=== PATIENT | female | born 1995 | race Caucasian/White ===

== ENCOUNTER 2017-11-25 04:35 | Emergency (ER) | payer OTHER ==
[~2017-11-25] VITALS: Ht 157.5 cm; Wt 49.4 kg
[2017-11-25 04:38] VITALS: Ht 157.5 cm; Wt 49.4 kg
[2017-11-25] MEDS ORDERED: SODIUM CHLORIDE 0.9% 1000ML 1,000 ML IV STA ×2 (04:51→05:48)
[2017-11-25] MEDS ORDERED: ONDANSETRON INJ 2 MG/ML 2 ML VIAL IV STA ×2 (04:51→06:32)
[2017-11-25 05:06] LABS: BASO % 0.1 %; BASO ABS # 0.01 K/uL (0-0.2); EOS % 0.3 %; EOS ABS # 0.06 K/uL (0-0.5); HEMATOCRIT 44.6 % (37-47); HEMOGLOBIN 14.6 g/dL (12.0-16.0); IG# 0.05 K/uL (0.00-0.02); LYMPH % 4.2 %; LYMPH ABS # 0.75 K/uL (1.2-3.4); MEAN CELL VOLUME 89.6 fL (80-100); MEAN CORPUSCULAR HEMOGLOBIN 29.3 pg (25-34); MEAN CORPUSCULAR HGB CONC 32.7 g/dl (32-36); MEAN PLATELET VOLUME 10.5 fL (7.4-10.4); MONO % 4.6 %; MONO ABS # 0.82 K/uL (0.11-0.59); NEUT % 90.5 %; NEUT ABS # 16.05 K/uL (1.4-6.5); PLATELET COUNT 239 K/uL (130-400); RED CELL DISTRIBUTION WIDTH CV 14.5 % (11.5-14.5); RED CELL DISTRIBUTION WIDTH SD 47.3 fL (36.4-46.3); WHITE BLOOD COUNT 17.74 K/uL (4.8-10.8)
--- NOTE | 2017-11-25 05:08 | EMERGENCY ROOM VISIT NOTE ---
History First contact with patient: 04:43 Chief Complaint: VOMITING Stated Complaint: THROWING UP,NOT BEING ABLE TO KEEP FLUIDS DOWN Nursing Triage Summary: c/o n/v since 0 no abd pain no diarrhea. History of Present Illness The patient is a 22 year old female who presents to the Emergency Room with complaints of vomiting for the past 5 hours. The patient states that she woke up from sleeping approximately 5 hours ago and was nauseous. She developed vomiting and has had multiple episodes of vomiting since then. She has been unable to keep anything down. She tried to drink a small sip of water and vomited immediately. She does have Zofran at home but states that as soon as she put it in her mouth that she vomited. She reports some abdominal discomfort which she describes as crampy pain and rates the discomfort a 2/10. She denies diarrhea. She reports that she ate a dinner of [employer] comes prior to going to bed last night. She denies any history of abdominal surgeries or abdominal issues. Review of Systems A complete 10 point review of systems was reviewed with the patient with pertinent positives and negatives as per history of present illness. All else were negative. Past Medical/Surgical History Medical Problems: (1) No significant active problems Surgical Problems: (1) No significant past surgical history Social History Smoking Status: Never Smoker Alcohol Use: occasionally Occupation Status: employed Current/Historical Medications Scheduled Control Pills ( Control Pills), 1 TAB PO DAILY Paroxetine Hcl (Paxil), 10 MG PO HS Scheduled PRN Clonazepam (Klonopin), 0.5 MG PO TID PRN for Anxiety Physical Exam Vital Signs Date Time Temp Pulse Resp B/P (MAP) Pulse Ox O2 Delivery O2 Flow Rate FiO2 11/25/17 05:55 92 18 114/72 96 Room Air 11/25/17 04:38 37.0 111 18 128/88 98 Room Air Physical Exam VITALS: Vitals are noted on the nurse's note and reviewed by myself. Vital signs stable. GENERAL: This is a 22-year-old female, in no acute distress, nondiaphoretic, well-developed well-nourished. SKIN: The skin was without rashes. EARS: External auditory canals clear, tympanic membranes pearly rogers without erythema or effusion bilaterally. EYES: Pupils equal round and reactive to light and accommodation. MOUTH: Mucous membranes moist. Tonsils are not enlarged. Pharynx without erythema or exudate. NECK: Supple without nuchal rigidity. No lymphadenopathy. HEART: Regular rate and rhythm without murmurs gallops or rubs. LUNGS: Clear to auscultation bilaterally without wheezes, rales or rhonchi. ABDOMEN: Positive bowel sounds x 4. Soft, mild generalized tenderness to palpation with no focal tenderness. No guarding or rebound tenderness. NEURO: Patient was alert and oriented to person place and time. Medical Decision & Procedures ER Provider Diagnostic Interpretation: ABDOMEN 2VIEW W/PA CHEST RTN CLINICAL HISTORY: 22 years-old Female presenting with abdominal pain, vomiting. TECHNIQUE: PA view of the chest and supine and upright views of the abdomen were obtained. COMPARISON: None. FINDINGS: Cardiomediastinal silhouette normal. Lungs and pleural spaces clear. Nonobstructive bowel gas pattern. No gross pneumoperitoneum. Allowing for bowel gas and stool, no calcifications to suggest nephrolithiasis. Osseous structures normal. IMPRESSION: 1. No acute cardiopulmonary disease. 2. No radiographic evidence of acute intra-abdominal pathology. Laboratory Results 11/25/17 06:30 11/25/17 04:50 Test 11/25/17 04:50 11/25/17 05:25 11/25/17 06:30 Immature Granulocyte % (Auto) 0.3 % White Blood Count 17.74 K/uL (4.8-10.8) Red Blood Count 4.98 M/uL (4.2-5.4) 3.97 M/uL (4.2-5.4) Hemoglobin 14.6 g/dL (12.0-16.0) Hematocrit 44.6 % (37-47) Mean Corpuscular Volume 89.6 fL (80-100) 89.2 fL (80-100) Mean Corpuscular Hemoglobin 29.3 pg (25-34) 29.5 pg (25-34) Mean Corpuscular Hemoglobin Concent 32.7 g/dl (32-36) 33.1 g/dl (32-36) Platelet Count 239 K/uL (130-400) Mean Platelet Volume 10.5 fL (7.4-10.4) 10.2 fL (7.4-10.4) Neutrophils (%) (Auto) 90.5 % Lymphocytes (%) (Auto) 4.2 % Monocytes (%) (Auto) 4.6 % Eosinophils (%) (Auto) 0.3 % Basophils (%) (Auto) 0.1 % Neutrophils # (Auto) 16.05 K/uL (1.4-6.5) Lymphocytes # (Auto) 0.75 K/uL (1.2-3.4) Monocytes # (Auto) 0.82 K/uL (0.11-0.59) Eosinophils # (Auto) 0.06 K/uL (0-0.5) Basophils # (Auto) 0.01 K/uL (0-0.2) Immature Granulocyte # (Auto) 0.05 K/uL (0.00-0.02) Anion Gap 6.0 mmol/L (3-11) Est Creatinine Clear Calc Drug Dose 87.1 ml/min Estimated GFR () 123.2 Estimated GFR (Non- 106.3 BUN/Creatinine Ratio 16.5 (10-20) Calcium Level 8.5 mg/dl (8.5-10.1) Total Bilirubin 0.5 mg/dl (0.2-1) Aspartate Amino Transf (AST/SGOT) 15 U/L (15-37) Alanine Aminotransferase (ALT/SGPT) 18 U/L (12-78) Alkaline Phosphatase 51 U/L (45-117) Total Protein 8.0 gm/dl (6.4-8.2) Albumin 3.7 gm/dl (3.4-5.0) Globulin 4.3 gm/dl (2.5-4.0) Albumin/Globulin Ratio 0.9 (0.9-2) Lipase 210 U/L (73-393) Urine Color YELLOW Urine Appearance CLOUDY (CLEAR) Urine pH 6.5 (4.5-7.5) Urine Specific [place] 1.023 (1.000-1.030) Urine Protein NEG (NEG) Urine Glucose (UA) NEG (NEG) Urine Ketones 1+ (NEG) Urine Occult Blood NEG (NEG) Urine Nitrite NEG (NEG) Urine Bilirubin NEG (NEG) Urine Urobilinogen NEG (NEG) Urine Leukocyte Esterase NEG (NEG) Urine WBC (Auto) 1-5 /hpf (0-5) Urine RBC (Auto) 0-4 /hpf (0-4) Urine Hyaline Casts (Auto) 1-5 /lpf (0-5) Urine Epithelial Cells (Auto) >30 /lpf (0-5) Urine Bacteria (Auto) 1+ (NEG) Urine Test NEG (NEG) RDW Standard Deviation 47.3 fL (36.4-46.3) RDW Coefficient of Variation 14.5 % (11.5-14.5) Medications Administered Medications (Trade) Dose Ordered Sig/Shandra Route Start Time Stop Time Status Last Admin Dose Admin Sodium Chloride 1,000 ml @ 999 mls/hr Q1H1M STAT IV 11/25/17 04:51 11/25/17 05:51 DC 11/25/17 04:59 999 MLS/HR Ondansetron HCl (Zofran Inj) 4 mg NOW STAT IV 11/25/17 04:51 11/25/17 04:53 DC 11/25/17 04:58 4 MG Sodium Chloride 1,000 ml @ 999 mls/hr Q1H1M STAT IV 11/25/17 05:48 11/25/17 06:48 DC 11/25/17 05:48 999 MLS/HR Ondansetron HCl (Zofran Inj) 4 mg NOW STAT IV 11/25/17 06:32 11/25/17 06:34 DC 11/25/17 06:36 4 MG ED Course The patient was evaluated as above. Labs were drawn and IV access was obtained. Patient was medicated with 2 L NSS and 4 mg Zofran. Patient was reevaluated and was feeling slightly nauseous. An additional 4 mg Zofran were ordered. CBC was redrawn. Patient was reevaluated and was able to tolerate fluids by mouth. She feels ready for discharge. Discharge instructions were reviewed with the patient. The patient verbalized understanding of my assessment and treatment plan and was discharged home in good condition. Medical Decision Differential diagnosis includes gastroenteritis, appendicitis, cholecystitis, bowel obstruction, , UTI, pancreatitis, among others. The patient is a 22-year-old female who presents today complaining of vomiting x 5 hours. Patient does report some abdominal cramping but has no focal tenderness on exam. Labs revealed leukocytosis of 17.74, possible secondary to vomiting or infection. Labs otherwise were unremarkable. LFTs and creat within normal limits. Urinalysis was not suggestive of infection. Urine was negative. Abdominal series showed no evidence of obstruction. Patient was treated with antiemetics and fluids. CBC was redrawn and showed improvement of her white count. Patient was able to tolerate PO fluids. Her presentation seems consistent with an acute gastroenteritis. Discussed options of care including discharge home vs further testing, and patient preferred to be discharged. She understands to return if she develops worsening pain, intractable vomiting, or fevers. The patient's case was reviewed with Dr. Crystal, ED attending physician, who agreed with my assessment and treatment plan. Based on the patient's presentation and work up, I feel the patient is stable for outpatient treatment. The patient was educated to return to the emergency department for any worsening of their current condition or new/concerning symptoms. She will follow up with her PCP. Medication Reconcilliation Current Medication List: was personally reviewed by me Blood Pressure Screening Patient's blood pressure: Normal blood pressure Impression Primary Impression: Vomiting Departure Information Dispostion Home / Self-Care Condition GOOD Referrals Temo Holley D.O. (PCP) Patient Instructions [facility] Additional Instructions Zofran every 6 hours as needed for nausea/vomiting. Drink frequent small sips of fluids to maintain hydration. When you are feeling better, you may advance to eating crackers, applesauce, toast, etc. Follow up with your primary care provider within 48 hours. Return to the emergency department with worsening vomiting, worsening abdominal pain, fevers, lightheadedness, or any other new/concerning symptoms. Problem Qualifiers Primary Impression: Vomiting Vomiting type: unspecified Vomiting Intractability: non-intractable Nausea presence: with nausea Qualified Codes: R11.2 - Nausea with vomiting, unspecified
[2017-11-25 05:29] LABS: ALBUMIN 3.7 gm/dl (3.4-5.0); CALCIUM 8.5 mg/dl (8.5-10.1); CREATININE 0.79 mg/dl (0.60-1.20); POTASSIUM 3.6 mmol/L (3.5-5.1)
[2017-11-25] MEDS ORDERED: BCPILLS PO (06:32)
[2017-11-25] MEDS ORDERED: PARO10TA PO (06:32)
[2017-11-25] MEDS ORDERED: CLON0.5T3 PO (06:32)
[2017-11-25 06:40] LABS: HEMATOCRIT 35.4 % (37-47); HEMOGLOBIN 11.7 g/dL (12.0-16.0); MEAN CELL VOLUME 89.2 fL (80-100); MEAN CORPUSCULAR HEMOGLOBIN 29.5 pg (25-34); MEAN CORPUSCULAR HGB CONC 33.1 g/dl (32-36); MEAN PLATELET VOLUME 10.2 fL (7.4-10.4); PLATELET COUNT 201 K/uL (130-400); RED CELL DISTRIBUTION WIDTH CV 14.5 % (11.5-14.5); RED CELL DISTRIBUTION WIDTH SD 47.3 fL (36.4-46.3); WHITE BLOOD COUNT 15.76 K/uL (4.8-10.8)
--- NOTE | 2017-11-25 06:48 | DIAGNOSTIC IMAGING REPORT ---
ABDOMEN 2VIEW W/PA CHEST RTN CLINICAL HISTORY: 22 years-old Female presenting with abdominal pain, vomiting. TECHNIQUE: PA view of the chest and supine and upright views of the abdomen were obtained. COMPARISON: None. FINDINGS: Cardiomediastinal silhouette normal. Lungs and pleural spaces clear. Nonobstructive bowel gas pattern. No gross pneumoperitoneum. Allowing for bowel gas and stool, no calcifications to suggest nephrolithiasis. Osseous structures normal. IMPRESSION: 1. No acute cardiopulmonary disease. 2. No radiographic evidence of acute intra-abdominal pathology. Electronically signed by: Kaden Tuttle M.D. 11/25/2017 6:47 AM Dictated Date/Time: 11/25/2017 6:46 AM
[2017-11-25 07:24] VITALS: BP 112/72; PULSE 86; O2SAT 100
== END 2017-11-25 07:26 | disposition home or self-care (01) ==
LOC: C.EDB 04:36 → C.EDA 07:26
DX: R11.2 Nausea with vomiting, unspecified (principal)